=== PATIENT | female | born 1960 | race Caucasian/White ===

== ENCOUNTER 2018-05-06 05:17 | Emergency (ER) | payer OTHER, MEDICAID, SELFPAY ==
[2018-05-06 05:19] VITALS: BP 112/74; PULSE 122; RESP 22; TEMP 36.1; O2SAT 96
--- NOTE | 2018-05-06 05:32 | ED.GENADUL_ITS ---
Discharge Plan Disposition Patient Disposition: HOME Condition: Improving Discharge Details Chief Complaint: RespSymp Clinical Impression: Upper respiratory infection Primary Care Provider: Kerry Ayala ED Provider: David Ochoa Home Meds and New Rx's Prescriptions: New guaifenesin [Mucinex] 600 mg tablet extended release 12hr 600 mg PO Q12H PRNQty: 10 RF: 0 benzonatate [Tessalon Perles] 100 mg capsule 100 mg PO TID PRN (Reason: cough) Qty: 14 RF: 0 doxycycline hyclate 100 mg capsule 100 mg PO BID 10 Days Qty: 20 RF: 0 Continued acetaminophen [Acetaminophen Extra Strength] 500 mg tablet 1,000 mg PO TID PRNRF: 0 escitalopram oxalate [Lexapro] 10 mg tablet 10 mg PO HS Qty: 30 RF: 11 levothyroxine 75 mcg tablet 75 mcg PO DAILY Qty: 90 RF: 4 omeprazole 40 mg capsule,delayed release(DR/EC) 40 mg PO BID Qty: 180 RF: 4 lorazepam 1 MG tablet 1 mg PO HS PRNQty: 30 RF: 2 Excedrin Migraine 1 EACH tablet 1 ea PO PRN PRNRF: 0 Discharge Instructions Instructions: Upper Respiratory Infection (ED) Additional Instructions: Home to rest today. Small, frequent sips of fluids and/or popsicles to maintain hydration. Tylenol and/or ibuprofen as needed for aches, pains, fever. If your cough becomes more productive, you develop persistent fevers, may begin antibiotics as we discussed. Follow-up with regular doctor if not improving in 3-5 days time Stand Alone Forms: Work Release Medical Decision Making 57-year-old female presents from home with 2 days of cough and fever. She arrives with a temp of 36, normal blood pressure slightly elevated pulse. Differential diagnosis includes influenza, viral syndrome, bronchitis. She is oxygenating normally and lungs are clear. Patient given ibuprofen with some improvement of her pulse. She is taking liquids without difficulty. Influenza screening negative. Discussed with her a trial of symptomatic management and prescription in a pocket for worsening symptoms of chest congestion and production of yellow sputum. She will follow- up with regular doctor if not improving in 5 days HPI General Mode of arrival: ambulatory . Date/Time Provider Initiated Documentation: 05/06/18 05:24 . Limitations to Documentation: no limitations . Information obtained by: patient . History of Present Illness 57 year old F presents to the emergency department with the chief complaint of Cough and fever over 2 days, described as moderate, Quality is described as aching, and is localized to the chest. Patient reports no radiation. No exacerbating factors reported . Patient notes fever/chills and loss of appetite; denies nausea/vomiting. Patient did receive the following treatments prior to arrival, other (Tylenol) Related Data Home Medications Medication Instructions Recorded Confirmed Excedrin Migraine 1 ea PO PRN PRN 02/03/16 05/06/18 lorazepam 1 mg PO HS PRN #30 tab-cap 05/30/17 05/06/18 acetaminophen 500 mg tablet 1,000 mg PO TID PRN tab 01/06/18 05/06/18 escitalopram 10 mg tablet 10 mg PO HS #30 tab-cap 01/06/18 05/06/18 levothyroxine 75 mcg tablet 75 mcg PO DAILY #90 tab-cap 01/06/18 05/06/18 omeprazole 40 mg capsule,delayed 40 mg PO BID #180 cap 01/06/18 05/06/18 release benzonatate [Tessalon Perles] 100 mg PO TID PRN #14 cap 05/06/18 doxycycline hyclate 100 mg PO BID 10 Days #20 cap 05/06/18 guaifenesin [Mucinex] 600 mg PO Q12H PRN #10 tab 05/06/18 Previous Rx's Medication Instructions Recorded escitalopram 10 mg tablet 10 mg PO HS #30 tab-cap 01/06/18 levothyroxine 75 mcg tablet 75 mcg PO DAILY #90 tab-cap 01/06/18 omeprazole 40 mg capsule,delayed 40 mg PO BID #180 cap 01/06/18 release benzonatate [Tessalon Perles] 100 mg PO TID PRN #14 cap 05/06/18 doxycycline hyclate 100 mg PO BID 10 Days #20 cap 05/06/18 guaifenesin [Mucinex] 600 mg PO Q12H PRN #10 tab 05/06/18 Allergies Allergy/AdvReac Type Severity Reaction Status Date / Time ketorolac tromethamine Allergy Intermediate mouth Unverified 05/06/18 05:23 [From Toradol] becomes numb and Paranoia General Stated Complaint: RespSymp TIANNA: 3 Review of Systems Review of Systems 6 systems reviewed and otherwise - PFSH Medical History Disc disease with myelopathy, lumbar (Resolved) Ganglion (Resolved 01/24/15) Kidney stone (Resolved 02/16/14) Left foot pain (Resolved 01/24/15) Low back pain, non-specific (Resolved) Mass of left foot (Resolved) Mass of left foot (Resolved 01/31/15) Mgrn NOS w ntrc w st mgr (Resolved) Sinusitis (Resolved) Tachycardia (Resolved 02/16/14) Kidney stone Migraine Surgical History History of bilateral tubal ligation (Resolved) History of extraction of renal calculus (Resolved) History of orthopedic surgery (Resolved) Kidney Stone Extraction Ligation of fallopian tube Shoulder Surgery Family History Mother No problems noted. Father Epilepsy Grandmother Diabetes Social History Smoking/Tobacco Use Status: Former Tobacco Use Exam Narrative Exam Narrative: GEN: awake, alert, oriented 3. Pleasant, well groomed, interactive. HEAD: Normocephalic, atraumatic ENT: Mucous membranes dry, mildly erythematous tonsillar pillars, External ear exam unremarkable EYES: PERRL, EOMI NECK: Full ROM, no NATALY, no menigismus CHEST/RESP: Nontender, clear to auscultation bilateral, no wheeze/rhonchi/rales, cough noted CARDIOVASCULAR: Regular and slightly tachycardia, no murmur, rub curly. 2+ Rad pulse bilateral ABDOMEN: Soft, nontender, no mass. +Bowel sounds EXT: Full ROM, no edema, no rash Neuro: Grossly normal neurologic exam, conversant, interactive. Psych: Speech fluent, thoughts congruent, affect normal Course Vital Signs Temperature 36.1 C L 05/06/18 05:19 Pulse 122 H 05/06/18 05:19 Respiratory Rate 22 05/06/18 05:19 Blood Pressure 112/74 05/06/18 05:19 Pulse Oximetry 96 05/06/18 05:19 Temperature 36.1 C L 05/06/18 05:19 Temperature Source Skin 05/06/18 05:19 Pulse 122 H 05/06/18 05:19 Respiratory Rate 22 05/06/18 05:19 Respiratory Effort 05/06/18 05:22 Blood Pressure 112/74 05/06/18 05:19 Blood Pressure Position Sitting 05/06/18 05:19 Pulse Oximetry 96 05/06/18 05:19 Oxygen Delivery Method Room Air 05/06/18 05:19 Oxygen Flow Rate 0 05/06/18 05:19 Pain Level 7 05/06/18 05:19 Lab/Test Results Lab/Test Results: 05/06/18 05:25 Nasopharynx Influenza Types A,B Antigen - Pending
[2018-05-06] MEDS: Ibuprofen 800 MG TAB PO (05:33)
[2018-05-06 05:48] VITALS: PULSE 107; TEMP 36.6; O2SAT 95
[2018-05-06 06:00] VITALS: BP 124/77; PULSE 110; RESP 18; TEMP 36.8; O2SAT 100
== END 2018-05-06 06:00 | disposition home or self-care (01) ==
LOC: ER 06:01
PROVIDERS: Emergency Provider Emergency Medicine; PCP Family Medicine
DX: J06.9 Acute upper respiratory infection, unspecified (principal); J02.9 Acute pharyngitis, unspecified
CPT/HCPCS: 87449; 87880; 99283

== ENCOUNTER 2018-06-04 10:06 | Outpatient (CLI) | payer OTHER, SELFPAY ==
[2018-06-04 11:02] LABS: HCT 43.2 % (36.0-46.0); HGB 14.2 g/dL (12.0-15.5); Mean Corp. HGB Concentration 32.9 g/dL (32.0-36.0); Mean Corpuscular Hemoglobin 28.5 pg (27.0-33.0); Mean Corpuscular Volume 86.7 fL (80-95); Mean Platelet Volume 10.2 fL (8.0-11.0); Platelet Count 286 x1000/uL (130-400); RBC 4.98 m/cumm (4.00-5.20); RBC Distribution Width 13.1 % (11.7-14.6); White Blood Cell Count 6.41 k/cumm (4.4-10.8)
[2018-06-04 11:55] LABS: ALT 21 U/L (12-78); AST 22 U/L (15-37); Albumin 3.9 g/dL (3.4-5.0); Alkaline Phosphatase 96 U/L (46-116); Anion Gap 9.6 mmol/L (3-11); BUN 12 mg/dL (7-18); Bilirubin, Total 0.4 mg/dL (0.2-1.0); CO2 28.4 mmol/L (21.0-32.0); CREATININE 0.78 mg/dL (0.55-1.02); Calcium 9.1 mg/dL (8.5-10.1); Chloride 101 mmol/L (98-107); Cholesterol 301 mg/dL (50-200); Glucose 81 mg/dL (70-100); HDL Cholesterol 42 mg/dL (40-60); LDL CHOLESTEROL 226 mg/dL (<100); Potassium 3.9 mmol/L (3.5-5.1); Sodium 139 mmol/L (136-145); TSH (W/Ref FT4) 0.62 uIU/mL (0.358-3.74); Total Protein 7.5 g/dL (6.4-8.2); Triglyceride 168 mg/dL (30-150)
== END 2018-06-04 10:26 ==
PROVIDERS: PCP Family Medicine; Visit Provider Family Medicine
DX: E03.9 Hypothyroidism, unspecified (principal)
CPT/HCPCS: 36415; 80053; 80061; 83721; 85027; 84443

== ENCOUNTER 2018-07-28 10:02 | Emergency (ER) | payer OTHER, SELFPAY ==
[2018-07-28 10:12] VITALS: BP 132/78; PULSE 81; RESP 16; TEMP 36.6; O2SAT 97
--- NOTE | 2018-07-28 10:32 | NUR.NOTE ---
Nursing Note: Patient stated to Ann in Access just now that Dr. Ayala's office just called and they will see her right now. She left to go the that office. Fani Figueroa.
== END 2018-07-28 10:33 | disposition left before discharge ==
PROVIDERS: Emergency Provider Student in an Organized Health Care Education/Training Program; PCP Family Medicine
DX: R07.9 Chest pain, unspecified (principal); Z53.21 Procedure and treatment not carried out due to patient leaving prior to being seen by health care provider

== ENCOUNTER 2018-11-17 10:37 | Outpatient (REF) | payer MEDICAID, SELFPAY ==
--- NOTE | 2018-11-17 10:15 | PAPFT_PTH ---
PATIENT: Fay Ng LOC: [facility] U#:[id number] AGE/SX: 58/F ROOM: RE11/17/[address]: Kerry Ayala MD, DC : 1960 BED: DIS: 11/17/2018 SPEC #: [id number] RECD: 11/17/18 12:36 STATUS: SARA GÓMEZ #: [id number] LAURIE: 11/17/18 10:[address]: Kerry Ayala DEPT: [facility] Cytology RECD BY: Shelli Schmitt Tissues: 1 - CX/ENDOCX FOR PAP SMEARS Procedures: PAP THIN PREP/UVM Screening HPV DNA PROBE Comments: [id number]
== END 2018-11-17 10:57 ==
LOC: LBN 10:37
PROVIDERS: PCP Family Medicine; Visit Provider Family Medicine
DX: Z12.4 Encounter for screening for malignant neoplasm of cervix (principal); Z11.51 Encounter for screening for human papillomavirus (HPV)
CPT/HCPCS: 88142; 87624

== ENCOUNTER 2019-03-10 16:04 | Outpatient (REF) | payer MEDICAID, SELFPAY ==
--- NOTE | 2019-03-10 15:30 | SKI_PTH ---
PATIENT: Fay Ng LOC: [facility] U#:[id number] AGE/SX: 58/F ROOM: RE03/10/[address]: Kerry Ayala MD, DC : 1960 BED: DIS: 03/10/2019 SPEC #: [id number] RECD: 03/10/19 18:35 STATUS: SARA RETresa #: [id number] LAURIE: 03/10/19 15:[address]: Kerry Ayala DEPT: Surgical Specimen RECD BY: Dorene Das Tissues: 1 - SKIN BIOPSY(SHAVE/PUNCH) Procedures: SKIN LEVEL 4 Comments: [id number]
== END 2019-03-10 16:24 ==
LOC: LBN 16:04
PROVIDERS: PCP Family Medicine; Visit Provider Family Medicine
DX: L82.1 Other seborrheic keratosis (principal)
CPT/HCPCS: 88305

== ENCOUNTER 2019-09-02 18:35 | Outpatient (REF) | payer OTHER, SELFPAY ==
[2019-09-02 17:17] LABS: ALT 31 U/L (14-59); AST 24 U/L (15-37); Albumin 3.9 g/dL (3.4-5.0); Alkaline Phosphatase 75 U/L (46-116); Anion Gap 8.5 mmol/L (3-11); BUN 15 mg/dL (7-18); Bilirubin, Total 0.2 mg/dL (0.2-1.0); CO2 26.5 mmol/L (21.0-32.0); CREATININE 0.95 mg/dL (0.55-1.02); Calcium 8.7 mg/dL (8.5-10.1); Chloride 103 mmol/L (98-107); Glucose 102 mg/dL (74-106); Sodium 138 mmol/L (136-145); TSH (W/Ref FT4) 0.79 uIU/mL (0.36-3.74); Total Protein 7.1 g/dL (6.4-8.2)
== END 2019-09-02 18:55 ==
LOC: LBN 18:35
PROVIDERS: PCP Family Medicine; Visit Provider Family Medicine
DX: Z00.00 Encounter for general adult medical examination without abnormal findings (principal); Z13.228 Encounter for screening for other metabolic disorders; Z13.29 Encounter for screening for other suspected endocrine disorder
CPT/HCPCS: 80053; 84443

== ENCOUNTER 2019-09-08 13:30 | Emergency (ER) | payer OTHER, SELFPAY ==
[2019-09-08 13:37] VITALS: BP 115/89; PULSE 77; RESP 18; TEMP 36.6; O2SAT 96
--- NOTE | 2019-09-08 13:45 | DI.RAD_ITS ---
EXAM: XR WRIST RT COMPLETE and XR forearm RT CLINICAL HISTORY: Fall, deformity. TECHNIQUE: 2D digital imaging was performed. COMPARISON: CR XR FOREARM RT from 09/08/2019 FINDINGS: BONES: Nondisplaced fracture at the base of the ulnar styloid process. Comminuted fracture involving the distal metaphysis of the right radius. There does appear to be extension into the articular michael face medially. The fracture is mildly impacted. No other fracture is identified. There are tiny we ll corticated osseous densities adjacent to the olecranon which appear old. No bony destructive lesi on is seen. JOINTS: The carpal bones are normally aligned. SOFT TISSUE: Normal. IMPRESSION: Distal right radial and ulnar fractures as described. DATA REPOSITORY: RADIATION DOSE DELIVERED:
--- NOTE | 2019-09-08 13:49 | ED.GENADUL_ITS ---
Discharge Plan Disposition Patient Disposition: HOME Condition: Stable Discharge Details Chief Complaint: Orthopedic Clinical Impression: Closed fracture of distal end of right radius with ulna Primary Care Provider: Kerry Ayala ED Provider: Caitlin Dong Home Meds and New Rx's Prescriptions: No Action diphenhydramine-acetaminophen [Tylenol PM Extra Strength] 25-500 mg tablet 1 tab PO QHS PRNRF: 0 sumatriptan succinate 100 mg tablet 100 mg PO ONCE Qty: 8 RF: 12 acetaminophen [Acetaminophen Extra Strength] 500 mg tablet 1,000 mg PO TID PRNRF: 0 escitalopram oxalate [Lexapro] 10 mg tablet 10 mg PO HS Qty: 90 RF: 11 levothyroxine 75 mcg tablet 75 mcg PO DAILY Qty: 90 RF: 4 famotidine 20 mg tablet 40 mg PO QHS Qty: 180 RF: 4 omeprazole 40 mg capsule,delayed release(DR/EC) 40 mg PO BID Qty: 180 RF: 4 Excedrin Migraine 1 EACH tablet 1 ea PO PRN PRNRF: 0 Discharge Instructions Instructions: Wrist Fracture in Adults (ED) Additional Instructions: Please follow-up with orthopedic clinic in 1 week. Return to the ED with for any concerns, worsening pain, problems with circulation. Take ibuprofen every 4-6 hours as needed for pain. Do not take any other Tylenol with Percocet. Take Percocets with food. Do not operate heavy machinery or drive while taking medication. Stand Alone Forms: Work Release Referrals: Kerry Ayala MD, [place] [Primary Care Provider] - Luciano Navarrete MD [ [facility] STAFF PHYSICIAN] - Discharge Data Discharge Date/Time-TO BE ENTERED AT DEPARTURE: 09/08/19 15:33 Medical Decision Making 59-year-old female presents with right forearm and wrist pain and deformity after a slip and fall while getting out of the shower. Patient denies hitting head, no loss of consciousness denies any neck or back pain. Radial pulses are 2+, cap refill less than 2 seconds, elbow is intact with full range of motion no crepitus, step-off or deformity noted to the elbow. Patient denies any other symptoms. 1354: Zofran 4 mg ODT, Percocet 1 tablet p.o. and imaging ordered at this time rule out fracture which is highly suspected. CLINICAL HISTORY: Fall, deformity. FINDINGS: BONES: Nondisplaced fracture at the base of the ulnar styloid process. Comminuted fracture involving the distal metaphysis of the right radius. There does appear to be extension into the articular surface medially. The fracture is mildly impacted. No other fracture is identified. There are tiny well corticated osseous densities adjacent to the olecranon which appear old. No bony destructive lesion is seen. JOINTS: The carpal bones are normally aligned. SOFT TISSUE: Normal. IMPRESSION: Distal right radial and ulnar fractures as described. 1523: Splint applied reverse sugar tong, patient tolerated with difficulty complaining of pain. We will give 1 more Percocet here in department and sent home with a bottle of oxycodone 5 mg with 4 tabs. Plan is to have patient follow-up with orthopedics in 1 week. Distal circulation sensation movement intact post splint placement. Discussed home care, and splint care, instructed to keep elevated, ice, instructed to loosen Hernán wrap if any problems with circulation or pain. Verbalized understanding. HPI General Mode of arrival: ambulatory . Date/Time Provider Initiated Documentation: 09/08/19 13:42 . Limitations to Documentation: no limitations . Information obtained by: patient . HPI Narrative: 59-year-old female presents with right forearm and wrist pain and deformity after a slip and fall while getting out of the shower. Patient denies hitting head, no loss of consciousness denies any neck or back pain. Radial pulses are 2+, cap refill less than 2 seconds, elbow is intact with full range of motion no crepitus, step-off or deformity noted to the elbow. Patient denies any other symptoms. Related Data Home Medications Medication Instructions Recorded Confirmed Excedrin Migraine 1 ea PO PRN PRN 02/03/16 09/08/19 acetaminophen 500 mg tablet 1,000 mg PO TID PRN tab 01/06/18 09/08/19 escitalopram oxalate 10 mg tablet 10 mg PO HS #90 tab-cap 08/20/18 09/08/19 diphenhydramine 25 1 tab PO QHS PRN 11/17/18 09/08/19 mg-acetaminophen 500 mg tablet levothyroxine 75 mcg tablet 75 mcg PO DAILY #90 tab-cap 01/14/19 09/08/19 famotidine 20 mg tablet 40 mg PO QHS #180 tab 03/17/19 09/08/19 omeprazole 40 mg capsule,delayed 40 mg PO BID #180 cap 06/22/19 09/08/19 release sumatriptan succinate 100 mg tablet 100 mg PO ONCE #8 tab 07/16/19 09/08/19 Previous Rx's Medication Instructions Recorded escitalopram oxalate 10 mg tablet 10 mg PO HS #90 tab-cap 08/20/18 levothyroxine 75 mcg tablet 75 mcg PO DAILY #90 tab-cap 01/14/19 famotidine 20 mg tablet 40 mg PO QHS #180 tab 03/17/19 omeprazole 40 mg capsule,delayed 40 mg PO BID #180 cap 06/22/19 release sumatriptan succinate 100 mg tablet 100 mg PO ONCE #8 tab 07/16/19 Allergies Allergy/AdvReac Type Severity Reaction Status Date / Time ketorolac tromethamine Allergy Intermediate mouth Unverified 09/08/19 13:41 [From Toradol] becomes numb and Paranoia General Stated Complaint: Orthopedic TIANNA: 3 Review of Systems Narrative: Constitutional: Negative for weight loss, alert and oriented, well groomed, normal body habitus, appears uncomfortable. HEENT: Denies headaches, blurry vision, nasal discharge, sore throat, trouble swallowing. Chest: Denies chest pain, palpitations, irregular rhythm, hypertension. Respiratory: Denies Shortness of breath, cough, hemoptysis. Extremities: Right upper extremity tenderness and pain after fall Neuro: Denies dizziness, blurry vision, weakness, syncope, headache or facial numbness. Hematologic: Denies easy bruising, intolerance to heat or cold, hair loss. All systems reviewed & are unremarkable except as noted in HPI and below PFSH Medical History Arthritis of right acromioclavicular joint (Chronic 01/05/16) Bicipital tendinitis, right shoulder (Chronic 02/08/16) Depression (Chronic 07/26/14) Disc disease with myelopathy, lumbar (Resolved) Ganglion (Resolved 01/24/15) Gastroesophageal reflux disease with esophagitis (Chronic 10/01/17) Hypothyroidism (Chronic 11/26/16) Incomplete rupture of right rotator cuff (Chronic 01/05/16) Insomnia (Chronic 07/26/14) Kidney stone Kidney stone (Resolved 02/16/14) Left foot pain (Resolved 01/24/15) Low back pain, non-specific (Resolved) 06/23/12 unspecified laterality with sciatica presence unspecified Mass of left foot (Resolved) Mass of left foot (Resolved 01/31/15) Mgrn NOS w ntrc w st mgr (Resolved) 06/23/12 Migraine 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) Right thyroid nodule (Chronic 04/24/16) vascular by US hyperfunction by scan S/P Surgery Sinusitis (Resolved) 07/26/14 SLAP (superior labrum from anterior to posterior) tear (Chronic 03/02/16) 02/08/16 right shoulder Subacromial bursitis (Chronic 02/08/16) 02/07/19-with large anterolateral spur Tachycardia (Resolved 02/16/14) Surgical History History of bilateral tubal ligation (Resolved) History of extraction of renal calculus (Resolved) History of orthopedic surgery (Resolved) 02/01/09 removal of mass-left foot (suspected ganglion cyst) Kidney Stone Extraction Ligation of fallopian tube Shoulder Surgery 02/08/16-right shoulder; Dr. Navarrete Family History Mother , 89 Heart disease Father , 85 Epilepsy Brain cancer Heart disease Grandmother Diabetes Brother , 20 No problems noted. Brother , 66 Kidney cancer, primary, with metastasis from kidney to other site Social History Smoking/Tobacco Use Status: Former Tobacco Use Quit Date: 04/01/16 Alcohol Intake: never Drug use: Never Substance use type: does not use Caregiver/Support person: No Household members: spouse Housing: house Communication Needs: None Do you need help understanding health information?: Never Pets and animals: No Sexually active: Yes Do you think of yourself as: straight/heterosexual Current gender identity: female What is your relationship status?: How often do you talk on the phone with friends or family?: three or more times per week How often do you get together with friends or relatives?: three or more times per week How often do you attend druze or latter-day services?: decline to answer Do you belong to any clubs or organized social groups?: no Panel score (0-1 are the most socially isolated patients): 2 What type of physical activity do you participate in: decline to answer Duration: decline to answer Frequency: decline to answer Davida/Congregation: Religion Special davida needs: No Seatbelt use: always Drive intox or ride w/intox commercial trailer truck driver: No Do you feel safe at home: Yes Do you feel safe in your relationship?: Yes Exam Narrative Exam Narrative: Constitutional: Alert and oriented x3. Appears stated age. Normal body habitus. Head: Normocephalic, no trauma. Eyes: Pupils PERRLA, Red reflex noted, EOM's intact. Eyelids symmetrical without lesions, discharge, or swelling. ENT: Bilateral TM's WNL, External ear normal to inspection, no mastoid TTP, swelling, or erythema, Nasal turbinates WNL, no nasal discharge. Normal dentition, Posterior pharynx WNL, no exudate. Chest: RRR, Normal S1, S2, distal pulses intact. Resp: Lungs clear to auscultation bilaterally, no wheezes, rales, or rhonchi. Musculoskeletal: Normal gait, right upper extremity tenderness to palpation mid forearm, has a swelling and deformity noted to the medial aspect the dorsal wrist. Positive snuffbox tenderness, cap refill less than 2 seconds, radial pulses intact 2+. No obvious deformity, tenderness to palpation to elbow. No midline C, T, L-spine tenderness with palpation. Skin: No suspicious rashes or lesions. Capillary refill less than 2 sec. Neurologic: Cranial nerves II-XII intact. Alert and oriented x 3. DTR's intact. Hematologic/Lymphatic: No ecchymosis, no lymphadenopathy. Course Vital Signs Vital signs: Vital Signs Temperature 36.6 C 09/08/19 13:37 Pulse 77 09/08/19 13:37 Respiratory Rate 18 09/08/19 13:37 Blood Pressure 115/89 09/08/19 13:37 Pulse Oximetry 96 09/08/19 13:37 Temperature 36.6 C 09/08/19 13:37 Temperature Source Temporal Artery Scan 09/08/19 13:37 Pulse 77 09/08/19 13:37 Respiratory Rate 18 09/08/19 13:37 Respiratory Effort Non-Labored 09/08/19 13:40 Blood Pressure 115/89 09/08/19 13:37 Blood Pressure Position Sitting 09/08/19 13:37 Pulse Oximetry 96 09/08/19 13:37 Oxygen Delivery Method Room Air 09/08/19 13:37 Oxygen Flow Rate 0 09/08/19 13:37 Pain Level 9 09/08/19 13:41
[2019-09-08] MEDS: Ondansetron O.D.T. 4 MG TABEF PO (13:51)
[2019-09-08] MEDS: oxyCODONE 5 mg/Acetaminophen 325 mg TAB 1 TAB PO ×2 (13:51→15:25)
[2019-09-08 15:30] VITALS: BP 120/82; PULSE 72; RESP 18; O2SAT 88
== END 2019-09-08 15:33 | disposition home or self-care (01) ==
PROVIDERS: Emergency Provider Registered Nurse Emergency; PCP Family Medicine
DX: S52.614A Nondisplaced fracture of right ulna styloid process, initial encounter for closed fracture (principal); S52.571A Other intraarticular fracture of lower end of right radius, initial encounter for closed fracture; W18.2XXA Fall in (into) shower or empty bathtub, initial encounter
CPT/HCPCS: 29125; 99284; 73090; 73110; L3650

== ENCOUNTER 2019-09-18 11:56 | Outpatient (CLI) | payer OTHER, SELFPAY ==
--- NOTE | 2019-09-18 11:45 | DI.RAD_ITS ---
EXAM: XR WRIST RT LIMITED CLINICAL HISTORY: F/U FRACTURE. TECHNIQUE: 2D digital imaging was performed. COMPARISON: CR XR WRIST RT COMPLETE from 09/08/2019 FINDINGS: Two views were performed with the wrist in a splint. There is there are again noted to be distal rad ial and ulnar styloid the fractures, unchanged in position. DATA REPOSITORY: RADIATION DOSE DELIVERED:
== END 2019-09-18 12:16 ==
PROVIDERS: PCP Family Medicine; Referring Provider Family Medicine; Visit Provider Student in an Organized Health Care Education/Training Program
DX: S52.571D Other intraarticular fracture of lower end of right radius, subsequent encounter for closed fracture with routine healing (principal); S52.614D Nondisplaced fracture of right ulna styloid process, subsequent encounter for closed fracture with routine healing
CPT/HCPCS: 73100

== ENCOUNTER 2019-09-25 10:06 | Outpatient (CLI) | payer OTHER, SELFPAY ==
--- NOTE | 2019-09-25 10:00 | DI.RAD_ITS ---
EXAM: XR WRIST RT LIMITED CLINICAL HISTORY: right distal radius fracture TECHNIQUE: COMPARISON: CR XR WRIST RT COMPLETE from 09/08/2019 CR XR FOREARM RT from 09/08/2019 CR XR WRIST RT LIMITED from 09/18/2019 CR XR WRIST RT LIMITED from 09/18/2019 FINDINGS: Two views were obtained. Previously described fracture of the distal radius is again noted, there ap pears to be mildly increased dorsal angulation of the distal fracture fragments in comparison prior s dy of September 07 and September 17. Additionally there may be mildly increased loss of length of the dis addi radius. IMPRESSION:
== END 2019-09-25 10:26 ==
PROVIDERS: PCP Family Medicine; Referring Provider Family Medicine; Visit Provider Physician Assistant
DX: S52.571D Other intraarticular fracture of lower end of right radius, subsequent encounter for closed fracture with routine healing (principal)
CPT/HCPCS: 73100

== ENCOUNTER 2019-09-28 07:58 | Outpatient (CLI) | payer OTHER, SELFPAY ==
[2019-09-28 20:43] LABS: COVID-19 RT-PCR UVMMC Result Negative (Negative)
== END 2019-09-28 08:18 ==
PROVIDERS: PCP Family Medicine; Visit Provider Student in an Organized Health Care Education/Training Program
DX: Z01.818 Encounter for other preprocedural examination (principal); Z11.59 Encounter for screening for other viral diseases
CPT/HCPCS: U0003

== ENCOUNTER 2019-09-30 11:15 | Day surgery (SDC) | payer OTHER, SELFPAY ==
[2019-09-30] VITALS (8 sets, daily range): BP systolic 89–129; BP diastolic 61–88; PULSE 66–77; RESP 12–18; TEMP 36.4–36.9; O2SAT 95–98
--- NOTE | 2019-09-30 10:14 | PDOC.DSDIS_ITS ---
Discharge Plan Disposition Patient Disposition: HOME Condition: Good Discharge Details Reason For Visit: R WRIST FX Attending Provider: Luciano Navarrete Primary Care Provider: Kerry Ayala Home Meds and New Rx's Prescriptions: New acetaminophen 500 mg tablet 500 mg PO Q6H PRN (Reason: pain) Qty: 60 RF: 2 ibuprofen 600 mg tablet 600 mg PO TID PRN (Reason: pain) Qty: 60 RF: 2 oxycodone 5 mg tablet 5 mg PO Q6H PRN (Reason: severe post-operative pain) Qty: 12 RF: 0 Continued diphenhydramine-acetaminophen [Tylenol PM Extra Strength] 25-500 mg tablet 1 tab PO QHS PRNRF: 0 sumatriptan succinate 100 mg tablet 100 mg PO ONCE Qty: 8 RF: 12 escitalopram oxalate [Lexapro] 10 mg tablet 10 mg PO HS Qty: 90 RF: 11 levothyroxine 75 mcg tablet 75 mcg PO DAILY Qty: 90 RF: 4 omeprazole 40 mg capsule,delayed release(DR/EC) 40 mg PO BID Qty: 180 RF: 4 Excedrin Migraine 1 EACH tablet 1 ea PO PRN PRNRF: 0 Discontinued acetaminophen [Acetaminophen Extra Strength] 500 mg tablet 1,000 mg PO TID PRNRF: 0 Discharge Instructions Additional Instructions: Wrist Fracture Fixation Discharge Instructions Activity: You should keep the hand/wrist elevated as much as possible for the first few days. You may use the other fingers as tolerated but avoid trying to do too much too soon. You may perform light activities with the splint in place. Dressing/Cast: Your splint should stay in place at all times. Do NOT get it wet. You may loosen the KEL wrap if you feel it is too tight and then re-wrap more loosely. Medications: - You should take Tylenol and Ibuprofen for baseline pain control. - You have been prescribed a stronger pain medication, Oxycodone, for breakthrough pain. - You may apply ice over the wrist, just double bag so it doesn't get wet. Follow-up: 10-14 days Referrals: Luciano Navarrete MD [ [facility] STAFF PHYSICIAN] - Equipment/Supplies: Splint Activity:: Elevate Remove Dressings/Wound Care:: Do Not Remove Shower/Bathe:: Cover Diet:: As Tolerated Discharge Orders Discharge Orders: Discharge Order (Routine); Ordered 09/30/19 Ordered By: Portia Pérez DS: Diagnosis Discharge Diagnosis (1) Distal radius fracture: Status: Acute
[2019-09-30] MEDS: Lactated Ringers 1,000 ML 80 ML IV (11:54)
--- NOTE | 2019-09-30 12:30 | DI.RAD_ITS ---
EXAM: XR WRIST RT LIMITED CLINICAL HISTORY: FRACTURE DISTAL RADIUS TECHNIQUE: 2D and realtime digital imaging was performed. CONTRAST MATERIAL: Refer to procedure report. COMPARISON: CR XR WRIST RT LIMITED from 09/25/2019 FINDINGS: Fluoroscopy was provided for Dr. Navarrete during the performance of a open reduction and internal fi xation of the distal right radial fracture.. Please refer to the procedure report for complete detai ls. Fluoro time: 44 seconds IMPRESSION: RADIATION DOSE DELIVERED:
[2019-09-30] MEDS: ceFAZolin 2 GM/50 ML BAG IVPB (13:04)
[2019-09-30] MEDS: oxyCODONE 5 MG TAB PO (15:07)
[2019-09-30] MEDS: fentaNYL 100 MCG/2 ML VIAL IVP (15:30)
--- NOTE | 2019-10-01 07:22 | ROE_ITS ---
Date of service: 09/30/19 Time of Service: 15:23 Operative Note Operative Note DATE OF PROCEDURE: 10/16/18 PRE-OP DIAGNOSIS: Right Distal Radius Fracture POST-OP DIAGNOSIS: same PROCEDURE: Open Reduction and Internal Fixation of Right Distal Radius SURGEON: Luciano Navarrete GM/SVP [employer] PUBLISHER BUSINESS: Portia Pérez ANESTHESIA: GETA and regional ESTIMATED BLOOD LOSS: 0 PATHOLOGY: none sent TOURNIQUET TIME: 44 COMPLICATIONS: None Patient was transported to: PACU Patient's condition: stable Indications: Fay is a 59-year-old [id number] female who I have seen for a distal radius fracture. Initial treatment with splinting was performed. However, the fracture worsened within the splint. Given the deformity, displacement, fracture pattern, and effect on daily function, I recommended surgical fixation. I reviewed the risk of the procedure to include bleeding, infection co-pay, stiffness, damage to nerves and vessels, damage to muscles and tendons, malunion, nonunion, hardware prominence, tendon rupture, need for repeat procedures. Despite these risks, the patient elected to proceed. Findings: There is a distal radius fracture which had 3 parts. There is a primary distal articular block, the proximal fragment, and significant comminuted pieces over the dorsum. It was reduced and fixed with a Synthes volar locking plate. Areas of bone void were filled with Norian calcium phosphate cement. Procedure Description: Name was greeted in the preoperative holding area. The correct patient and site was confirmed and marked. The history and physical was updated. The consent was reviewed the patient and signed. The patient was taken to the PACU for administration of regional anesthetic, supraclavicular block. The patient was taken to the operating room and placed in the supine position. All bony problems were well-padded. The right arm was placed onto a radiolucent hand table. A nonsterile tourniquet was placed high up on the arm. Prophylactic antibiotics in the form of cefazolin were administered. The left arm was prepped with ChloraPrep and draped in a standard fashion. A timeout was performed for safe surgery. A standard longitudinal incision was made overlying the flexor carpi radialis tendon starting at the distal wrist crease and moving proximally. The skin was incised sharply. The flexor carpi radialis tendon and its sheath is identified. The sheath was opened. The tendon was moved ulnarly in the floor of the sheath was incised. Blunt dissection the flexor pollicis longus muscle belly and tendon were also made radially exposing the pronator quadratus and the distal radius. The printer quadratus was elevated with an ulnar-based flap. This exposed the volar distal radius and the fracture. A kirby elevator was used for full exposure of the volar surface of the distal radius. The primary fracture line was exposed. Using a series of elevators, curettes, and knife, the fracture was fully debrided of any fibrous tissue and callus formation. I used a freer elevator to help mobilize the fragments. There were 2 primary components, one mini articular block on being the shaft. The third part was the comminuted dorsal pieces. I then performed a closed reduction. Using gentle traction and fracture manipulation, this reduction was held. Fluoroscopic images were used to confirm adequate reduction. An appropriately sized Synthes volar locking plate was then placed onto the bony surface of the distal radius. Was then held there with a distal radius clamp sandwiching the plate to the distal segment. A single K wire was placed through the distal end. Fluoroscopy was once again used to confirm appropriate positioning of the plate on the distal radius. A reduction K wire was placed into the slotted hole on the shaft but not tightened all the way to allow for manipulation of the distal segment onto the proximal shaft. A single nonlocking screw was placed to the distal portion of the plate securing the plate against the bone of the distal radial metaphysis. Once again, the plate was evaluated to make sure it was aligned appropriately. The single screw was also checked to make sure it was in appropriate positioning for trajectory of future screws. The remainder of the screws within the volar locking plate were filled with locking screws. These were made sure not to penetrate the dorsal cortex. Once these were applied the proximal portion of the plate was further reduced down onto the shaft, which further reduce the distal segment. This was held in position with a tightened reduction K wire. Fluoroscopy was then used against confirm appropriate reduction. Nonlocking screws were placed within the 3 shaft screw holes. The single nonlocking screw placed distally was treated for a locking screw slightly shorter to prevent penetration dorsally. Final x-rays were obtained which demonstrated adequate reduction and positioning of hardware. The dorsal sunrise view was also obtained to ensure correct sizing of screws. The wound was then thoroughly irrigated. The pronator quadratus was reapproximated with a 0 Vicryl. The tourniquet was released and there was no notable vascular injury. The fingers were warm and well-perfused. The deep dermal layer was closed with a 2-0 Vicryl. The skin was closed with 4-0 nylon. The wound was dressed with Xeroform, 4 x 4's, web roll. A short arm splint was applied. At the end the case all counts are correct. Patient was transferred back to the PACU in stable condition.
== END 2019-09-30 16:49 | disposition home or self-care (01) ==
LOC: SUR 11:15
PROVIDERS: PCP Family Medicine; Visit Provider Student in an Organized Health Care Education/Training Program
PROC: (CPT 25609; principal; 2019-09-30 13:30)
DX: S52.571A Other intraarticular fracture of lower end of right radius, initial encounter for closed fracture (principal); W19.XXXA Unspecified fall, initial encounter; Y92.009 Unspecified place in unspecified non-institutional (private) residence as the place of occurrence of the external cause
CPT/HCPCS: 25609; C1713; 73100; J0131; J0690; J1100; J2001; J2250; J2405; J3010; L3650

== ENCOUNTER 2019-10-12 13:53 | Outpatient (CLI) | payer OTHER, SELFPAY ==
--- NOTE | 2019-10-12 12:45 | DI.RAD_ITS ---
EXAM: XR WRIST RT LIMITED CLINICAL HISTORY: f/u surgery. TECHNIQUE: 2D digital imaging was performed. COMPARISON: CR XR WRIST RT LIMITED from 09/30/2019 FINDINGS: BONES: There is again seen a sideplate and screws transfixing the distal right radial fracture. No c hange in alignment of the orthopedic hardware or fracture components is noted. There is a stable non displaced ulnar styloid process fracture. No bony destructive lesion is seen. JOINTS: The carpal bones are normally aligned. SOFT TISSUE: Soft tissue swelling. IMPRESSION: Stable right radial and ulnar fractures. DATA REPOSITORY: RADIATION DOSE DELIVERED:
== END 2019-10-12 14:13 ==
PROVIDERS: PCP Family Medicine; Referring Provider Family Medicine; Visit Provider Student in an Organized Health Care Education/Training Program
DX: S52.614D Nondisplaced fracture of right ulna styloid process, subsequent encounter for closed fracture with routine healing (principal); S52.571D Other intraarticular fracture of lower end of right radius, subsequent encounter for closed fracture with routine healing
CPT/HCPCS: 73100

== ENCOUNTER 2019-11-09 09:38 | Outpatient (CLI) | payer OTHER, SELFPAY ==
--- NOTE | 2019-11-09 09:15 | DI.RAD_ITS ---
EXAM: XR WRIST RT LIMITED CLINICAL HISTORY: f/u R wrist ORIF. TECHNIQUE: 2D digital imaging was performed. COMPARISON: CR XR WRIST RT LIMITED from 10/12/2019 FINDINGS: BONES: There are stable post operative changes present. There is a stable ulnar styloid process frac ture. No new fracture or dislocation is present. JOINTS: The joint spaces are well maintained. No joint effusion is present. SOFT TISSUE: Normal. IMPRESSION: Stable postoperative changes. DATA REPOSITORY: RADIATION DOSE DELIVERED:
== END 2019-11-09 09:58 ==
PROVIDERS: PCP Family Medicine; Referring Provider Family Medicine; Visit Provider Student in an Organized Health Care Education/Training Program
DX: S52.611D Displaced fracture of right ulna styloid process, subsequent encounter for closed fracture with routine healing (principal)
CPT/HCPCS: 73100

== ENCOUNTER 2019-12-02 04:39 | Outpatient (CLI) | payer OTHER, SELFPAY ==
--- NOTE | 2019-12-02 08:30 | DI.DEXA_ITS ---
EXAM: XR DEXA BONE DENSITY W/WO ARBEN CLINICAL HISTORY: osteoporosis, M81.0 TECHNIQUE: COMPARISON: No exams were available for comparison FINDINGS: Lateral Spine Image: Unremarkable. No compression deformities identified. Left hip: Total T-Score: -2.1 Total Z-Score: -1.1 T- and Z-scores: Osteopenia and increased fracture risk Lumbar Spine: Total T-Score: -2.3 Total Z-Score: -0.8 T- and Z-scores: Osteopenia and increased fracture risk IMPRESSION: Osteopenia in the left hip and lumbar spine.
== END 2019-12-02 04:59 ==
PROVIDERS: PCP Family Medicine; Visit Provider Family Medicine
DX: M85.89 Other specified disorders of bone density and structure, multiple sites (principal)
CPT/HCPCS: 77080

== ENCOUNTER 2019-12-21 09:15 | Outpatient (CLI) | payer OTHER, SELFPAY ==
--- NOTE | 2019-12-21 08:15 | DI.RAD_ITS ---
EXAM: XR WRIST RT LIMITED CLINICAL HISTORY: F/U ORIF WRIST. TECHNIQUE: 2D digital imaging was performed. COMPARISON: CR XR WRIST RT LIMITED from 11/09/2019 FINDINGS: There is again seen a sideplate and screws transfixing the distal right radial fracture. No change i n alignment of the orthopedic hardware or fracture components is noted. The distal radial fracture a ppears to be healing. There is no change in the nondisplaced ulnar styloid process fracture. No new fracture or dislocation is seen. The soft tissues are unremarkable. IMPRESSION: Stable distal right radial and ulnar fractures. DATA REPOSITORY: RADIATION DOSE DELIVERED:
== END 2019-12-21 09:35 ==
PROVIDERS: PCP Family Medicine; Referring Provider Family Medicine; Visit Provider Student in an Organized Health Care Education/Training Program
DX: S52.591A Other fractures of lower end of right radius, initial encounter for closed fracture (principal); S52.614A Nondisplaced fracture of right ulna styloid process, initial encounter for closed fracture
CPT/HCPCS: 73100

== ENCOUNTER 2020-06-08 03:53 | Outpatient (CLI) | payer OTHER, SELFPAY ==
[2020-06-08 10:47] LABS: ALT 36 U/L (14-59); AST 23 U/L (15-37); Alkaline Phosphatase 74 U/L (46-116); Anion Gap 11.8 mmol/L (3-11); BUN 14 mg/dL (7-18); Bilirubin, Total 0.4 mg/dL (0.2-1.0); CO2 25.2 mmol/L (21.0-32.0); CREATININE 0.8 mg/dL (0.55-1.02); Calcium 8.7 mg/dL (8.5-10.1); Chloride 101 mmol/L (98-107); Glucose 102 mg/dL (74-106); Potassium 4.1 mmol/L (3.5-5.1); Sodium 138 mmol/L (136-145); TSH (W/Ref FT4) 1.18 uIU/mL (0.36-3.74); Total Protein 7.2 g/dL (6.4-8.2); Vitamin B12 397 pg/mL (193-986)
== END 2020-06-08 03:54 | disposition home or self-care (01) ==
LOC: LBO 03:53
PROVIDERS: PCP Family Medicine; Visit Provider Family Medicine
DX: Z00.00 Encounter for general adult medical examination without abnormal findings (principal); E03.9 Hypothyroidism, unspecified; R53.83 Other fatigue; R71.8 Other abnormality of red blood cells; D64.9 Anemia, unspecified; K21.9 Gastro-esophageal reflux disease without esophagitis
CPT/HCPCS: 36415; 80053; 82607; 84443

== ENCOUNTER 2021-11-28 15:07 | Outpatient (REF) | payer OTHER, SELFPAY ==
[2021-11-28 20:33] LABS: HCT 42.1 % (36.0-46.0); HGB 13.7 g/dL (11.2-15.7); MCH 28.8 pg (27.0-33.0); MCHC 32.5 % (32.0-36.0); MCV 88 fL (80-95); MPV 10.8 fL (8.0-11.0); Platelet Count 279 10^3/uL (130-400); RBC 4.76 10^6/uL (3.93-5.22); RDW 12.4 % (11.7-14.6); RDW-SD 40.2 fL
[2021-11-28 21:23] LABS: AST 27 U/L (15-37); Albumin 4.3 g/dL (3.4-5.0); Alkaline Phosphatase 57 U/L (46-116); Anion Gap 13.5 mmol/L (3-11); BUN 16 mg/dL (7-18); Bilirubin, Total 0.4 mg/dL (0.2-1.0); CO2 25.5 mmol/L (21.0-32.0); CREATININE 0.9 mg/dL (0.55-1.02); Chloride 102 mmol/L (98-107); Estimated GFR 71.83 (mL/min/1.73m2); Glucose 102 mg/dL (74-106); Potassium 3.9 mmol/L (3.5-5.1); Sodium 141 mmol/L (136-145); TSH (W/Ref FT4) 0.88 uIU/mL (0.36-3.74); Total Protein 7.6 g/dL (6.4-8.2); Vitamin B12 389 pg/mL (193-986)
[2021-11-28 21:39] LABS: ALT 37 U/L (14-59)
== END 2021-11-28 15:08 | disposition home or self-care (01) ==
LOC: LBN 15:07
PROVIDERS: PCP Family Medicine; Visit Provider Family Medicine
DX: E03.9 Hypothyroidism, unspecified (principal); F32.9 Major depressive disorder, single episode, unspecified; K21.00 Gastro-esophageal reflux disease with esophagitis, without bleeding; Z00.00 Encounter for general adult medical examination without abnormal findings
CPT/HCPCS: 80053; 85027; 82607; 84443

== ENCOUNTER 2022-05-17 07:53 | Emergency (ER) | payer OTHER, SELFPAY ==
[2022-05-17 07:56] VITALS: BP 134/83; PULSE 89; RESP 16; TEMP 36.3; O2SAT 98
--- NOTE | 2022-05-17 08:00 | DI.RAD_ITS ---
Exam(s) XR RIBS RT W PA LAT CHEST EXAM: XR RIBS RT W PA LAT CHEST CLINICAL HISTORY: Fall with right lateral rib pain TECHNIQUE: 2D digital imaging was performed. COMPARISON: CR CHEST 2 VIEWS PA,LAT from 05/30/2017 FINDINGS: RIBS 3 VIEWS-right There are no obvious acute rib fractures evident. No lytic rib lesions identified. Incidentally not ed is a widened ipsilateral right AC joint although this is probably postsurgical. CXR- 2 VIEWS: There is no abnormal infiltrate in the right upper lobe which was not evident in 2018. This may be a significant incidental finding. No other pulmonary findings and no pneumothorax nor pleural effusio n. Heart size is normal and there is no significant mediastinal widening. IMPRESSION: 1. No obvious rib fractures evident. Also no significant rib lesions. 2. Right upper lobe infiltrate-possible concerning pathology. This was not present in 2018. Conside r CT scan. DATA REPOSITORY: RADIATION DOSE DELIVERED:
--- NOTE | 2022-05-17 08:00 | DI.RAD_ITS ---
Exam(s) XR FOOT RT COMPLETE EXAM: XR FOOT RT COMPLETE CLINICAL HISTORY: fall lateral pain. TECHNIQUE: 2D digital imaging was performed. COMPARISON: No exams were available for comparison FINDINGS: 3 views Mild soft tissue swelling. No evidence of acute fracture or diastasis of the Lisfranc joint. Bone d ensity normal. No osseous lesions. No radiopaque foreign body. IMPRESSION: No acute osseous findings DATA REPOSITORY: RADIATION DOSE DELIVERED:
--- NOTE | 2022-05-17 08:00 | DI.RAD_ITS ---
Exam(s) XR TIB/FIB RT EXAM: XR TIB/FIB RT CLINICAL HISTORY: fall lower tib pain. TECHNIQUE: 2D digital imaging was performed. COMPARISON: No exams were available for comparison FINDINGS: Two views: No evidence of fracture nor radiopaque foreign body. No osseous lesions. Bone density normal. IMPRESSION: No significant osseous findings. DATA REPOSITORY: RADIATION DOSE DELIVERED:
--- NOTE | 2022-05-17 08:00 | DI.RAD_ITS ---
Exam(s) XR STERNUM EXAM: XR STERNUM CLINICAL HISTORY: fall lower half pain. TECHNIQUE: 2D digital imaging was performed. COMPARISON: CR XR RIBS RT W PA LAT CHEST from 05/17/2022 FINDINGS: 3 views No sternal fracture identified IMPRESSION: No sternal fracture evident. DATA REPOSITORY: RADIATION DOSE DELIVERED:
--- NOTE | 2022-05-17 08:16 | W.ED.GENAD ---
Discharge Plan Disposition Patient Disposition: Home Condition: Stable Discharge Details Clinical Impression: Contusion of multiple sites, Right foot sprain Primary Care Provider: Kerry Ayala ED Provider: Minor Christine Home Meds and New Rx's Prescriptions: Continued diphenhydramine-acetaminophen [Tylenol PM Extra Strength] 25-500 mg tablet 1 tab PO QHS PRN ibuprofen 600 mg tablet 600 mg PO TID PRN (Reason: pain) Qty: 60 2RF molnupiravir 200 mg capsule 800 mg PO Q12H 5 Days Qty: 40 0RF escitalopram oxalate 20 mg tablet 20 mg PO HS Qty: 90 11RF levothyroxine 75 mcg tablet 75 mcg PO DAILY Qty: 90 1RF omeprazole 40 mg capsule,delayed release(DR/EC) 40 mg PO DAILY Qty: 90 4RF Excedrin Migraine 1 EACH tablet 1 ea PO PRN PRN acetaminophen 500 mg tablet 500 mg PO Q6H PRN (Reason: pain) Qty: 60 2RF Discharge Instructions Instructions: Contusion in Adults (ED), Foot Sprain (ED) Additional Instructions: During today's visit there was an incidental finding of an abnormality noted on your chest x-ray. Please follow-up with your primary care provider for further evaluation of what is seen. No obvious fracture was noted on radiological imaging today she may continue to use conservative [id number] management of your pain and discomfort. If you develop any new or significant worsening of symptoms return to the emergency department for evaluation otherwise follow-up with your primary care provider if not improving in the next 1 to 2 weeks. Referrals: Kerry Ayala [place], [place] [Primary Care Provider] - 1 week (For evaluation of your incidental chest x-ray finding) Discharge Data Discharge Date/Time-TO BE ENTERED AT DEPARTURE: 05/17/22 10:14 Medical Decision Making Patient presenting to the emergency department for chief complaint of fall with primary source of mechanical nature. Patient denies any loss of consciousness, neck pain, focal neurological deficits. She states that she fell initially injuring her foot but during the fall also struck her right ribs on a stair. Patient denies any other injury or trauma. Physical exam shows tenderness to the lower aspects of the sternum with pain radiating into the lateral aspects of the mid ribs on the right side. Patient has clear lung sounds and normal cardiac exam. No spinal tenderness or abnormality is noted. Physical exam also shows mild lower tibial tenderness to palpation along with significant dorsal foot tenderness and ecchymosis with point tenderness to the base of the fifth metatarsal. Sensation cap refill and pulses are intact. We will plan on performing radiological imaging for evaluation of acute fracture versus soft tissue injury. Pending results will give patient Tylenol ibuprofen and lidocaine patch. At this time I doubt the patient has any pneumothorax, hemothorax, and no signs of open fracture. Review of radiological imaging and radiologist interpretation shows no acute fracture or worrisome findings noted. There was an incidental finding of a potential abnormality in the right upper lung that was not present on previous CT imaging. Discussed this finding with patient and patient stated that she would prefer to follow-up with her primary care provider to have any further repeat imaging or CT imaging performed. Referral was placed for patient to follow-up with primary care provider. Otherwise conservative management of multiple contusions was discussed along with return and follow-up precautions. After discussion of diagnosis and plan of care patient has no further needs, questions, or concerns and states clear understanding to return to the emergency department for any worsening symptoms. This documentation was generated using Me[employer] dictation system, please disregard any oddities of phrase or misspellings. Imaging Data Radiologic Study: Attestation: I personally reviewed and interpreted this imaging study as follows: Imaging: X-Ray Radiologist's impression: EXAM: XR TIB/FIB RT CLINICAL HISTORY: fall lower tib pain. TECHNIQUE: 2D digital imaging was performed. COMPARISON: No exams were available for comparison FINDINGS: Two views: No evidence of fracture nor radiopaque foreign body. No osseous lesions. Bone density normal. IMPRESSION: No significant osseous findings. Radiologic Study #2: Attestation: I personally reviewed and interpreted this imaging study as follows: Imaging: X-Ray Radiologist's impression: Exam(s) XR FOOT RT COMPLETE EXAM: XR FOOT RT COMPLETE CLINICAL HISTORY: fall lateral pain. TECHNIQUE: 2D digital imaging was performed. COMPARISON: No exams were available for comparison FINDINGS: 3 views Mild soft tissue swelling. No evidence of acute fracture or diastasis of the Lisfranc joint. Bone density normal. No osseous lesions. No radiopaque foreign body. IMPRESSION: No acute osseous findings Radiologic Study #3: Attestation: I personally reviewed and interpreted this imaging study as follows: Imaging: X-Ray Radiologist's impression: EXAM: XR STERNUM CLINICAL HISTORY: fall lower half pain. TECHNIQUE: 2D digital imaging was performed. COMPARISON: CR XR RIBS RT W PA LAT CHEST from 05/17/2022 FINDINGS: 3 views No sternal fracture identified IMPRESSION: No sternal fracture evident. Radiologic Study #4: Attestation: I personally reviewed and interpreted this imaging study as follows: Imaging: X-Ray Radiologist's impression: EXAM: XR RIBS RT W PA LAT CHEST CLINICAL HISTORY: Fall with right lateral rib pain TECHNIQUE: 2D digital imaging was performed. COMPARISON: CR CHEST 2 VIEWS PA,LAT from 05/30/2017 FINDINGS: RIBS 3 VIEWS-right There are no obvious acute rib fractures evident. No lytic rib lesions identified. Incidentally noted is a widened ipsilateral right AC joint although this is probably postsurgical. CXR- 2 VIEWS: There is no abnormal infiltrate in the right upper lobe which was not evident in 2018. This may be a significant incidental finding. No other pulmonary findings and no pneumothorax nor pleural effusion. Heart size is normal and there is no significant mediastinal widening. IMPRESSION: 1. No obvious rib fractures evident. Also no significant rib lesions. 2. Right upper lobe infiltrate-possible concerning pathology. This was not present in 2018. Consider CT scan. HPI General Mode of arrival: ambulatory. Date/Time Provider Initiated Documentation: 05/17/22 08:00. Limitations to Documentation: no limitations. Information obtained by: patient, family and RN notes reviewed. History of Present Illness 61 year old F presents to the emergency department with the chief complaint of Fall with right rib and lower leg injury, described as moderate, with intensity rated at 8. Quality is described as sharp, and is localized to the chest (Sternum and right lateral ribs) and right (Lower extremity). Patient reports no radiation. Patient started experiencing this day(s) (1) and it has been constant. Immobilization improves symptom(s), Movement worsens symptoms . Patient notes no other symptoms.. Patient did receive the following treatments prior to arrival, none Related Data Home Medications Medication Instructions Recorded Confirmed [id number] 250 1 ea PO PRN PRN 02/03/16 05/17/22 mg-250 mg-65 mg tablet (Excedrin Migraine) diphenhydramine 25 1 tab PO QHS PRN 11/17/18 05/17/22 mg-acetaminophen 500 mg tablet (Tylenol PM Extra Strength) acetaminophen 500 mg tablet 500 mg PO Q6H PRN pain #60 tabs 09/30/19 05/17/22 ibuprofen 600 mg tablet 600 mg PO TID PRN pain #60 tabs 11/24/20 05/17/22 molnupiravir 200 mg capsule (EUA) 800 mg PO Q12H 5 days #40 caps 12/28/21 05/17/22 escitalopram oxalate 20 mg tablet 20 mg PO HS #90 tab-caps 01/11/22 05/17/22 levothyroxine 75 mcg tablet 75 mcg PO DAILY #90 tab-caps 01/11/22 05/17/22 omeprazole 40 mg capsule,delayed 40 mg PO DAILY #90 caps 04/09/22 05/17/22 release Previous Rx's Medication Instructions Recorded acetaminophen 500 mg tablet 500 mg PO Q6H PRN pain #60 tabs 09/30/19 ibuprofen 600 mg tablet 600 mg PO TID PRN pain #60 tabs 11/24/20 molnupiravir 200 mg capsule (EUA) 800 mg PO Q12H 5 days #40 caps 12/28/21 escitalopram oxalate 20 mg tablet 20 mg PO HS #90 tab-caps 01/11/22 levothyroxine 75 mcg tablet 75 mcg PO DAILY #90 tab-caps 01/11/22 omeprazole 40 mg capsule,delayed 40 mg PO DAILY #90 caps 04/09/22 release Allergies Allergy/AdvReac Type Severity Reaction Status Date / Time ketorolac tromethamine Allergy Intermediate mouth Unverified 05/17/22 08:02 [From Toradol] becomes numb and Paranoia General Stated Complaint: Orthopedic TIANNA: 4 Review of Systems Narrative: 6 systems reviewed and unremarkable except what is marked below. Cardiovascular Cardiovascular: Denies syncope Respiratory Respiratory: Reports pain on inspiration Gastrointestinal Gastrointestinal: Denies abdominal pain Musculoskeletal Musculoskeletal: Reports as per HPI, Reports arthralgias and Reports joint swelling Integumentary/Breasts Skin/Breast: Reports unusual bruising Neurologic Neurologic: Denies syncope PFSH All Active Problems (Updated 05/17/22 @ 10:02 by Minor Christine NP) Contusion of multiple sites (Acute) Right foot sprain (Acute) Sacroiliac dysfunction (Acute) Carpal tunnel syndrome of right wrist (Acute) De Quervain's disease (radial styloid tenosynovitis) (Acute) Osteoporosis (Chronic) Fracture of right distal radius (Acute) Status post ORIF: 09/30/2019 Low back pain (Acute 06/23/12) Left foot pain (Acute 01/24/15) Intractable migraine with status migrainosus (Acute 06/23/12) Ganglion (Acute 01/24/15) Disc disorder of lumbar region (Acute) Annual physical exam (Acute) Skin lesion (Acute) Distal radius fracture (Acute 09/08/19) Subacromial bursitis (Chronic 02/08/16) 02/07/19-with large anterolateral spur SLAP (superior labrum from anterior to posterior) tear (Chronic 03/02/16) 02/08/16 right shoulder Right thyroid nodule (Chronic 04/24/16) vascular by US hyperfunction by scan Per pt. 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) Insomnia (Chronic 07/26/14) Incomplete rupture of right rotator cuff (Chronic 01/05/16) Hypothyroidism (Chronic 11/26/16) Gastroesophageal reflux disease with esophagitis (Chronic 10/01/17) Depression (Chronic 07/26/14) Bicipital tendinitis, right shoulder (Chronic 02/08/16) Arthritis of right acromioclavicular joint (Chronic 01/05/16) Medical History Chest discomfort Disc disease with myelopathy, lumbar Ganglion (01/24/15) Kidney stone Kidney stone (02/16/14) Left foot pain (01/24/15) Low back pain, non-specific 06/23/12 unspecified laterality with sciatica presence unspecified Mass of left foot Mass of left foot (01/31/15) Mgrn NOS w ntrc w st mgr 06/23/12 Migraine Sinusitis 07/26/14 Sinusitis (07/26/14) Tachycardia (02/16/14) Pt. states f/u with PCP regarding this, (Dr. Ayala) beleived that is was related to a side effect of a Nicotine patch she was on. Surgical History History of bilateral ligation of fallopian tubes History of bilateral tubal ligation History of extraction of renal calculus History of extraction of renal calculus History of orthopedic surgery 02/01/09 removal of mass-left foot (suspected ganglion cyst) History of orthopedic surgery (02/01/09) Kidney Stone Extraction Ligation of fallopian tube Shoulder Surgery 02/08/16-right shoulder; Dr. Navarrete Family History Mother , 89 Heart disease Father , 85 Epilepsy Brain cancer Heart disease Grandmother Diabetes Brother , 20 No problems noted. Brother , 66 Kidney cancer, primary, with metastasis from kidney to other site Sister , 74 Heart disease Sister , 60 Alcohol abuse Brother , 66 Cancer kidney cancer Social History Smoking/Tobacco Use Status: Former Tobacco Use tobacco type: cigarettes Quit Date: 04/01/16 Tobacco: How many years used: 30 Smoking risk assessment performed?: Yes Alcohol Intake: never Drug use: Never Substance use type: does not use Caregiver/Support person: No Household members: spouse Housing: house Communication Needs: None Do you need help understanding health information?: Rarely Pets and animals: No Sexually active: Yes Do you think of yourself as: straight/heterosexual Current gender identity: female What is your relationship status?: How often do you talk on the phone with friends or family?: three or more times per week How often do you get together with friends or relatives?: once per week How often do you attend congregational or restorationist services?: 1-3 times per year Do you belong to any clubs or organized social groups?: no Panel score (0-1 are the most socially isolated patients): 2 What type of physical activity do you participate in: decline to answer Duration: decline to answer Frequency: decline to answer Davida/Rastafari: Cheondoism Special davida needs: No Seatbelt use: always Drive intox or ride w/intox cdl company driver: No Do you feel safe at home: Yes Do you feel safe in your relationship?: Yes Exam Const General: cooperative, no acute distress and not ill appearing Orientation: alert, awake and oriented x3 Chest Chest: normal inspection of the chest, localized rib tenderness with anteroposterior compression right mid-axillary line involving the 5th rib, involving the 6th rib, involving the 7th rib and involving the 8th rib and tenderness sternum Resp Effort & Inspection: normal respiratory effort, able to speak in complete sentences and no respiratory distress Cardio Rate: regular rate Rhythm: regular rhythm Heart Sounds: S1 normal and S2 normal Back/Spine/Pelvis Cervical Spine: normal cervical lordosis and No cervical spinal tenderness Thoracic/Lumbar Spine: thoracic and lumbar spine normal to inspection, No thoracic spinal tenderness and No lumbar spinal tenderness Skin General skin exam: ecchymosis (Dorsal aspect of right foot) Neuro General: patient alert, patient awake, patient oriented x3, moves all extremities and no focal motor deficits Sensory Exam: no sensory deficits noted Extrem General: normal exam except as noted Right lower extremity: lower leg Details: tenderness Location: of the distal tibia, ankle Details: normal to inspection and normal ROM; no tenderness and no swelling and foot Details: normal capillary refill, tenderness Location: of the dorsal foot and of the lateral foot, toes with normal ROM, ecchymosis dorsal mid , vascular exam Details: dorsalis pedis pulse present and normal capillary refill and motor-sensory exam Details: two point discrimination normal and light-touch normal Course Vital Signs Vital signs: Vital Signs Temperature 36.3 C L 05/17/22 07:56 Pulse 89 05/17/22 07:56 Respiratory Rate 16 05/17/22 07:56 Blood Pressure 134/83 05/17/22 07:56 Pulse Oximetry 98 05/17/22 07:56 Temperature 36.3 C L 05/17/22 07:56 Temperature Source Tympanic 05/17/22 07:56 Pulse 89 05/17/22 07:56 Respiratory Rate 16 05/17/22 07:56 Respiratory Effort Normal 05/17/22 07:59 Blood Pressure 134/83 05/17/22 07:56 Blood Pressure Position Sitting 05/17/22 07:56 Pulse Oximetry 98 05/17/22 07:56 Oxygen Delivery Method Room Air 05/17/22 07:56 Oxygen Flow Rate 0 05/17/22 07:56 Pain Level 8 05/17/22 07:56
[2022-05-17] MEDS: Acetaminophen 500 MG TAB 1000 MG PO (08:26)
[2022-05-17] MEDS: Ibuprofen 600 MG TAB PO (08:27)
[2022-05-17] MEDS: Lidocaine 5% Patch 1 PATCH TP (08:27)
--- NOTE | 2022-05-17 10:03 | NUR.NOTE ---
Nursing Note: Referral faxed to PCP for incidental finding on xray of right upper lung in 1 week.
[2022-05-17 10:13] VITALS: BP 131/91; PULSE 88; TEMP 36.8; O2SAT 97
== END 2022-05-17 10:14 | disposition home or self-care (01) ==
PROVIDERS: Emergency Provider Nurse Practitioner Family; PCP Family Medicine
DX: S93.601A Unspecified sprain of right foot, initial encounter (principal); S90.31XA Contusion of right foot, initial encounter; W19.XXXA Unspecified fall, initial encounter; W22.8XXA Striking against or struck by other objects, initial encounter
CPT/HCPCS: 99284; 71046; 71100; 71120; 73590; 73630; 99282

== ENCOUNTER 2022-07-30 15:36 | Outpatient (CLI) | payer OTHER, SELFPAY ==
[2022-07-30 16:47] LABS: ESR 21 mm/hr (0-30)
[2022-07-30 21:32] LABS: C-Reactive Protein 0.38 mg/dL (0.0-0.3)
[2022-07-31 17:26] LABS: Rheumatoid Factor <8.6 IU/mL (<12.0)
[2022-08-01 07:51] LABS: Cyclic Citrullinated Peptide <2.5 U/mL (<5.0)
[2022-08-01 11:26] LABS: TB Interpretation Negative (Negative); TB1 Ag minus Nil 0.01 IU/ml; TB2 Ag minus Nil 0.05 IU/mL
[2022-08-01 15:08] LABS: ANA Interpretation Negative (Negative)
[2022-08-01 19:44] LABS: Myeloperoxidase Ab IgG <0.2 U; Proteinase 3 Ab (PR3) <0.2 U; Scl 70 Antibodies, IgG <0.2 U
[2022-08-02 15:04] LABS: Blastomyces Ag Result Not Detected; Blastomyces Ag Value Not Detected
[2022-08-02 16:59] LABS: Fungitell Qualitative Negative (Negative); Fungitell Quantitative Value <31 pg/mL (<60 pg/mL)
[2022-08-03 13:45] LABS: dsDNA Ab, IgG <12.3 IU/mL (<30.0)
[2022-08-03 15:13] LABS: SS-A Antibody 1.4 Units (<20.0)
[2022-08-03 15:41] LABS: Sm (Smith) Ab, IgG 2.3 Units (<20.0)
[2022-08-15 17:11] LABS: Anti-EJ Ab Negative (Negative); Anti-Jo-1 Ab <20 Units (<20); Anti-Ku Ab Negative (Negative); Anti-MDA-5 Ab (CADM-140) <20 Units (<20); Anti-Mi-2-Ab Negative (Negative); Anti-NXP-2 (P140) Ab <20 Units (<20); Anti-OJ Ab Negative (Negative); Anti-PL-12 Ab Negative (Negative); Anti-PL-7 Ab Negative (Negative); Anti-PM/Scl-100 Ab <20 Units (<20); Anti-SRP Ab Negative (Negative); Anti-SS-A 52kD Ab, IgG <20 Units (<20); Anti-TIF-1gamma Ab <20 Units (<20); Anti-U1 RNP Ab <20 Units (<20); Anti-U2 RNP Ab Negative (Negative); Anti-U3 RNP (Fibrillarin) Negative (Negative)
== END 2022-07-30 15:37 | disposition home or self-care (01) ==
LOC: LBO 15:36
PROVIDERS: PCP Family Medicine; Visit Provider Student in an Organized Health Care Education/Training Program
DX: R91.1 Solitary pulmonary nodule (principal)
CPT/HCPCS: 36415; 83516; 85652; 86200; 86235; 87305; 87449; 86038; 86140; 86225; 86431; 86480; 86606; 87385

== ENCOUNTER 2023-02-20 03:38 | Outpatient (CLI) | payer OTHER, SELFPAY ==
[2023-02-20 13:27] LABS: ALT 21 U/L (14-59); AST 16 U/L (15-37); Albumin 3.9 g/dL (3.4-5.0); Alkaline Phosphatase 68 U/L (46-116); Anion Gap 10.2 mmol/L (3-11); BUN 14 mg/dL (7-18); Bilirubin, Total 0.4 mg/dL (0.2-1.0); CO2 25.8 mmol/L (21.0-32.0); CREATININE 0.9 mg/dL (0.55-1.02); Chloride 101 mmol/L (98-107); Estimated GFR 71.39 (mL/min/1.73m2); Glucose 133 mg/dL (74-106); Potassium 3.6 mmol/L (3.5-5.1); Sodium 137 mmol/L (136-145); TSH (W/Ref FT4) 1.53 uIU/mL (0.36-3.74); Total Protein 7.7 g/dL (6.4-8.2)
== END 2023-02-20 03:39 | disposition home or self-care (01) ==
LOC: LBO 03:38
PROVIDERS: PCP Family Medicine; Visit Provider Family Medicine
DX: E03.9 Hypothyroidism, unspecified (principal); I10 Essential (primary) hypertension
CPT/HCPCS: 36415; 80053; 84443

== ENCOUNTER → 2023-07-01 01:31 | Outpatient (CLI) | payer OTHER, SELFPAY ==
--- NOTE | 2023-07-01 | DI.CT_ITS ---
Exam(s) CT CHEST W EXAM: CT CHEST W CLINICAL HISTORY: RT UPPER LOBE LUNG CANCER C34.11 S/P RUL LOBECTOMY RESTAGING TECHNIQUE: Imaging Protocol: Axial computed tomography images with coronal and sagittal reformatted images were created and reviewed CONTRAST MATERIAL: Intravenous: Omnipaque 350Contrast volume:70 mL. COMPARISON: CT CT CHEST WO from 05/29/[address] CHEST WO from 07/19/2022 FINDINGS: Tracheobronchial tree: Patent where visualized. Pulmonary parenchyma: The spiculated mass in the left lower lobe measures 1.5 x 1 cm. (Series 6, tali ge 323). This compares to 1.0 x 0.7 cm on the prior examination. There is a new reticular nodular i nfiltrate in the periphery of the left lower lobe. Status post right upper lobectomy. No other pulm onary nodules are seen. No other infiltrates are appreciated. Mediastinum and Griselda: No dominant adenopathy or fluid collection. The esophagus is unremarkable. Thyroid gland: Status post right lobectomy. The left lobe is unremarkable. Pleura: No effusion or pneumothorax. Heart: The heart is not dilated. No coronary artery calcifications are seen. No pericardial effusion. Aorta: Thoracic aorta non-dilated. Atherosclerotic calcification is present. Pulmonary arteries: Due to the timing of the bolus, the examination is not ideal for pulmonary artery evaluation. No large central pulmonary embolus is present. Upper abdomen: There is a simple cyst in the left kidney. No follow-up is recommended left renal co rtical atrophy and nephrolithiasis is seen. Lymph nodes: Within normal limits. Bones: Within normal limits for the patient's age. Soft tissues: Unremarkable. IMPRESSION: 1. Interval right upper lobectomy. 2. Interval increase in size of the spiculated nodule in the left lower lobe. It currently measures 1.5 x 1 cm compared with 1 x 0.7 cm. Metastasis should be considered. 3. New small reticular nodular infiltrate in the periphery of the left lower lobe. This is nonspecif ic. RADIATION DOSE DELIVERED: Total DLP DATA REPOSITORY: All CT scans at this facility are submitted to the National Radiology Data Registry (NRDR) Dose Index Registry (DIR) with the [employer] (ACR). RADIATION OPTIMIZATION: All CT scans at this facility use at least one of these dose optimization te chniques: automated exposure control; mA and/or kV adjustment per patient size (includes targeted exa ms where dose is matched to clinical indication); or iterative reconstruction.
[2023-07-01 08:41] LABS: Abs Immature Grans 0.05 10^3/uL (0.0-0.06); Absolute Basophil Count 0.05 10^3/uL (0.0-0.2); Absolute Eosinophil Count 0.14 10^3/uL (0.0-0.7); Absolute Lymphocyte Count 2.18 10^3/uL (1.2-3.4); Absolute Monocyte Count 0.61 10^3/uL (0.1-0.8); Absolute Neutrophil Count 5.25 10^3/uL (1.2-6.7); Basophils % 0.6; Eosinophils % 1.7; HCT 42.7 % (36.0-46.0); HGB 13.9 g/dL (11.2-15.7); Immature Grans % 0.6; Lymphocytes % 26.3; MCH 28.3 pg (27.0-33.0); MCHC 32.6 % (32.0-36.0); MCV 87 fL (80-95); MPV 9.6 fL (8.0-11.0); Monocytes % 7.4; Neutrophils % 63.4; Platelet Count 253 10^3/uL (130-400); RBC 4.91 10^6/uL (3.93-5.22); RDW-SD 41.4 fL; WBC 8.28 10^3/uL (4.4-10.8)
[2023-07-01 08:54] LABS: ALT 31 U/L (14-59); AST 23 U/L (15-37); Albumin 3.9 g/dL (3.4-5.0); Alkaline Phosphatase 79 U/L (46-116); BUN 12 mg/dL (7-18); Bilirubin, Total 0.5 mg/dL (0.2-1.0); CREATININE 0.9 mg/dL (0.55-1.02); Calcium 9.5 mg/dL (8.5-10.1); Chloride 102 mmol/L (98-107); Estimated GFR 71.39 (mL/min/1.73m2); Glucose 101 mg/dL (74-106); Potassium 4.2 mmol/L (3.5-5.1); Sodium 140 mmol/L (136-145); Total Protein 7.8 g/dL (6.4-8.2)
[2023-07-01] MEDS: Normal Saline - Diluent 50 ML VIAL IJ (09:24)
[2023-07-01] MEDS: Omnipaque 350 MG/ML 100 ML BTL 70 ML IJ (09:25)
[2023-07-01] MEDS: Normal Saline Flush 10 ML SYR IVP (09:34)
== END ==
PROVIDERS: PCP Family Medicine; Visit Provider Internal Medicine Medical Oncology
DX: C34.11 Malignant neoplasm of upper lobe, right bronchus or lung (principal); Z90.2 Acquired absence of lung [part of]; R91.8 Other nonspecific abnormal finding of lung field
CPT/HCPCS: 80053; 71260; 85025; J3490

== ENCOUNTER 2023-07-29 17:47 | Outpatient (CLI) | payer OTHER, SELFPAY ==
[2023-07-29 09:05] LABS: Abs Immature Grans 0.03 10^3/uL (0.0-0.06); Absolute Basophil Count 0.04 10^3/uL (0.0-0.2); Absolute Eosinophil Count 0.11 10^3/uL (0.0-0.7); Absolute Lymphocyte Count 2.22 10^3/uL (1.2-3.4); Absolute Monocyte Count 0.53 10^3/uL (0.1-0.8); Absolute Neutrophil Count 4.75 10^3/uL (1.2-6.7); Basophils % 0.5; Eosinophils % 1.4; HGB 13.5 g/dL (11.2-15.7); Immature Grans % 0.4; Lymphocytes % 28.9; MCH 28.5 pg (27.0-33.0); MCHC 32.9 % (32.0-36.0); MCV 87 fL (80-95); MPV 9.5 fL (8.0-11.0); Monocytes % 6.9; Neutrophils % 61.9; Platelet Count 250 10^3/uL (130-400); RBC 4.73 10^6/uL (3.93-5.22); RDW 12.8 % (11.7-14.6); RDW-SD 40.5 fL; WBC 7.68 10^3/uL (4.4-10.8)
[2023-07-29 09:21] LABS: ALT 23 U/L (14-59); AST 21 U/L (15-37); Albumin 3.9 g/dL (3.4-5.0); Alkaline Phosphatase 72 U/L (46-116); Anion Gap 9.8 mmol/L (3-11); BUN 11 mg/dL (7-18); Bilirubin, Total 0.6 mg/dL (0.2-1.0); CO2 25.2 mmol/L (21.0-32.0); CREATININE 0.9 mg/dL (0.55-1.02); Calcium 8.5 mg/dL (8.5-10.1); Chloride 101 mmol/L (98-107); Estimated GFR 71.39 (mL/min/1.73m2); Glucose 110 mg/dL (74-106); Potassium 3.9 mmol/L (3.5-5.1); Sodium 136 mmol/L (136-145); Total Protein 7.5 g/dL (6.4-8.2)
== END 2023-07-29 17:48 | disposition home or self-care (01) ==
LOC: LBO 17:49
PROVIDERS: PCP Family Medicine; Visit Provider Internal Medicine Medical Oncology
DX: C34.11 Malignant neoplasm of upper lobe, right bronchus or lung (principal)
CPT/HCPCS: 36415; 80053; 85025

== ENCOUNTER → 2023-09-12 00:09 | Outpatient (CLI) | payer MEDICARE, SELFPAY ==
--- NOTE | 2023-09-12 09:45 | DI.CT_ITS ---
Exam(s) CT CHEST W EXAM: CT CHEST W CLINICAL HISTORY: intermittent severe facial flushing lung [id number] R23.2 TECHNIQUE: Imaging Protocol: Axial computed tomography images with coronal and sagittal reformatted images were created and reviewed CONTRAST MATERIAL: Intravenous: Omnipaque 350contrast volume:100 mL. COMPARISON: CT CT CHEST W from 07/01/[address] NECK W from 09/12/2023 FINDINGS: The examination is limited due to patient motion artifact. Tracheobronchial tree: Patent where visualized. Pulmonary parenchyma: There is again seen a 1.5 x 1.1 cm spiculated mass in the left lower lobe (seri es 15, image 325). No focal consolidating infiltrates are seen. The previously seen peripheral infi ltrate in the left lower lobe has resolved. Status post right upper lobectomy. Mediastinum and Griselda: No dominant adenopathy or fluid collection. The esophagus is unremarkable. Thyroid gland: The right lobe of the thyroid gland is small or absent. Pleura: No effusion or pneumothorax. Heart: The heart is not dilated. Coronary artery calcification is present. No pericardial effusion. Aorta: Thoracic aorta non-dilated. Atherosclerotic calcification is present. There is no evidence of a dissection. Pulmonary arteries: Due to the timing of the bolus peripheral pulmonary artery evaluation is suboptim al. No large central pulmonary embolus is present. Upper abdomen: Left renal cortical atrophy, cysts and stones. No follow-up is recommended. Lymph nodes: Within normal limits. Bones: Within normal limits for the patient's age. There is a subacute healing fracture of the later al aspect of the right 5th rib. Soft tissues: Unremarkable. IMPRESSION: 1. Stable 1.5 x 1.1 cm spiculated nodule in the left lower lobe. 2. Resolution of the left lower lobe infiltrate. No acute pulmonary process. 3. Subacute healing fracture of the right 5th rib. RADIATION DOSE DELIVERED: Total DLP DATA REPOSITORY: All CT scans at this facility are submitted to the National Radiology Data Registry (NRDR) Dose Index Registry (DIR) with the [employer] (ACR). RADIATION OPTIMIZATION: All CT scans at this facility use at least one of these dose optimization te chniques: automated exposure control; mA and/or kV adjustment per patient size (includes targeted exa ms where dose is matched to clinical indication); or iterative reconstruction.
--- NOTE | 2023-09-12 09:48 | DI.CT_ITS ---
Exam(s) CT NECK W EXAM: CT NECK W CLINICAL HISTORY: intermittent severe facial flushing lung [id number] R23.2. TECHNIQUE: Imaging Protocol: Axial computed tomography images with coronal and sagittal reformatted images were created and reviewed. CONTRAST MATERIAL: Intravenous: Omnipaque 350 Contrast volume:100mL COMPARISON: CT CT HEAD WO/W from 09/12/2023 FINDINGS: The examination is limited due to patient motion artifact. Orbits and orbital soft tissues: Within normal limits. Visualized paranasal sinuses: Within normal limits. Nasopharynx: Within normal limits. Oropharynx: Within normal limits. Hypopharynx: Within normal limits. Larynx: Within normal limits. Retropharyngeal space: Within normal limits. Parotids/submandibular: Within normal limits. Thyroid gland: The right lobe of the thyroid gland is absent or very small. The left lobe is unrema rkable. Lymphadenopathy: There is scattered lymph nodes seen along the level one to level three all measurin g less than 8 mm in short axis diameter which are physiologic in nature. Trachea: Within normal limits. Lung apices: No focal infiltrates. Bones: Within normal limits for the patient's age. Carotids/Jugular: Within normal limits. Minimal atherosclerosis at the origin of the left internal c arotid artery. Soft tissues: Within normal limits. IMPRESSION: No evidence of a cervical mass or adenopathy. RADIATION DOSE DELIVERED: Total DLP Total DLP DATA REPOSITORY: All CT scans at this facility are submitted to the National Radiology Data Registry (NRDR) Dose Index Registry (DIR) with the [employer] (ACR). RADIATION OPTIMIZATION: All CT scans at this facility use at least one of these dose optimization te chniques: automated exposure control; mA and/or kV adjustment per patient size (includes targeted exa ms where dose is matched to clinical indication); or iterative reconstruction.
--- NOTE | 2023-09-12 09:48 | DI.CT_ITS ---
Exam(s) CT HEAD WO/W EXAM: CT HEAD WO/W CLINICAL HISTORY: intermittent severe facial flushing lung cancer C34.90 R23.2. TECHNIQUE: Imaging Protocol: Axial computed tomography images with coronal and sagittal reformatted images were created and reviewed. CONTRAST MATERIAL: Intravenous: Omnipaque 350 contrast volume:100 mL COMPARISON: No exams were available for comparison FINDINGS: Ventricles and Extra axial spaces: Normal in size and morphology for the patient's age. Hemorrhage: None. Cerebral parenchyma: No evidence of an acute territorial infarct or intracranial mass. Enhancement: No suspicious enhancement. [place] of [place]: Unremarkable. Midline shift: None. Brainstem/Cerebellum: Normal. Calvarium: Normal. Visualized Paranasal sinuses/Mastoids: Clear. IMPRESSION: No evidence of an intracranial mass or enhancing lesion. No acute intracranial process. RADIATION DOSE DELIVERED: Total DLP Total DLP DATA REPOSITORY: All CT scans at this facility are submitted to the National Radiology Data Registry (NRDR) Dose Index Registry (DIR) with the [employer] (ACR). RADIATION OPTIMIZATION: All CT scans at this facility use at least one of these dose optimization te chniques: automated exposure control; mA and/or kV adjustment per patient size (includes targeted exa ms where dose is matched to clinical indication); or iterative reconstruction.
[2023-09-12] MEDS: Omnipaque 350 MG/ML 500 ML BTL-Imaging package IJ (10:24)
[2023-09-12] MEDS: Normal Saline - Diluent 50 ML VIAL IJ (10:24)
[2023-09-12 12:59] LABS: CREATININE 0.9 mg/dL (0.55-1.02)
== END ==
PROVIDERS: PCP Family Medicine; Visit Provider Family Medicine
DX: C34.90 Malignant neoplasm of unspecified part of unspecified bronchus or lung (principal); R91.8 Other nonspecific abnormal finding of lung field; R23.2 Flushing
CPT/HCPCS: 70491; 70470; 71260; 82565

== ENCOUNTER 2024-02-11 01:21 | Outpatient (CLI) | payer MEDICARE, SELFPAY ==
--- NOTE | 2024-02-11 | DI.CT_ITS ---
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 TECHNIQUE: Imaging protocol: Axial computed tomography images were obtained and coronal and sagittal reformatted images were created and reviewed. Computer aided detection (CAD) was utilized. CONTRAST MATERIAL: Noncontrast COMPARISON: CT CT CHEST W from 07/01/[address] CHEST W from 09/12/2023 FINDINGS: Pulmonary parenchyma: Previously noted left lower lobe mass is no longer visible however there is lef t lower lobe consolidation which would obscure the mass. Mild scarring lingula. Right upper lobecto my. Tracheobronchial tree: No mucous plugging. No bronchiectasis . Pleura: No effusion or pneumothorax. Heart: The heart is mildly dilated. The coronary arteries show mild calcifications. Aorta: Thoracic aorta non-dilated. Mild atherosclerotic changes. Lymph nodes: No enlarged lymph nodes. Bones: Degenerative changes are seen. No evidence of compression fracture. No lytic or blastic l esion. Upper abdomen: Unremarkable. Soft tissues: Unremarkable. IMPRESSION: Area of consolidation left lung base, presumably secondary to radiation therapy. This obscures visua lization of any residual mass RADIATION DOSE DELIVERED: 220.74mGy.cm Total DLP 220.74mGy.cm Total DLP DATA REPOSITORY: All CT scans at this facility are submitted to the National Radiology Data Registry (NRDR) Dose Index Registry (DIR) with the [employer] ([employer]). RADIATION OPTIMIZATION: All CT scans at this facility use at least one of these dose optimization te chniques: automated exposure control; mA and/or kV adjustment per patient size (includes targeted exa ms where dose is matched to clinical indication); or iterative reconstruction.
== END 2024-02-11 01:41 ==
LOC: DI 01:22
PROVIDERS: PCP Family Medicine; Visit Provider Radiology Radiation Oncology
DX: C34.32 Malignant neoplasm of lower lobe, left bronchus or lung (principal)
CPT/HCPCS: 71250

== ENCOUNTER 2024-03-02 11:08 | Outpatient (CLI) | payer MEDICARE, SELFPAY ==
[2024-03-02 12:23] LABS: HCT 42.1 % (36.0-46.0); HGB 13.8 g/dL (11.2-15.7); MCH 28.6 pg (27.0-33.0); MCHC 32.8 % (32.0-36.0); MCV 87 fL (80-95); MPV 10.2 fL (8.0-11.0); Platelet Count 289 10^3/uL (130-400); RBC 4.82 10^6/uL (3.93-5.22); RDW 12.6 % (11.7-14.6); RDW-SD 40.3 fL; WBC 7.63 10^3/uL (4.4-10.8)
[2024-03-02 16:05] LABS: ALT 24 U/L (14-59); AST 25 U/L (15-37); Alkaline Phosphatase 78 U/L (46-116); Anion Gap 12.9 mmol/L (3-11); BUN 13 mg/dL (7-18); Bilirubin, Total 0.47 mg/dL (0.2-1.0); CO2 24.1 mmol/L (21.0-32.0); Calcium 9.4 mg/dL (8.5-10.1); Chloride 102 mmol/L (98-107); Estimated GFR 62.52 (mL/min/1.73m2); Glucose 102 mg/dL (74-106); Potassium 3.9 mmol/L (3.5-5.1); Sodium 139 mmol/L (136-145); TSH (W/Ref FT4) 0.51 uIU/mL (0.36-3.74); Total Protein 7.7 g/dL (6.4-8.2); Vitamin B12 399 pg/mL (193-986)
== END 2024-03-02 11:09 | disposition home or self-care (01) ==
LOC: LOS 11:08
PROVIDERS: PCP Family Medicine; Referring Provider Family Medicine; Visit Provider Family Medicine
DX: I48.91 Unspecified atrial fibrillation (principal); E03.9 Hypothyroidism, unspecified; E53.8 Deficiency of other specified B group vitamins; E04.1 Nontoxic single thyroid nodule; J45.909 Unspecified asthma, uncomplicated; I10 Essential (primary) hypertension
CPT/HCPCS: 36415; 80053; 85027; 82607; 84443

== ENCOUNTER 2024-03-12 09:21 | Outpatient (RCR) | payer MEDICARE, SELFPAY ==
--- NOTE | 2024-03-19 08:53 | W.HOLTRPT ---
Date of service: 03/19/24 Time of Service: 08:53 Holter Monitor Report Referring Provider:: Kerry Ayala Indications:: Unspecified atrial fibrillation Holter Monitor Note: This is a 48-hour Holter monitor. Predominant rhythm was sinus with an average heart rate of 71. Minimum was 54, maximum 104. There are very rare isolated ventricular ectopic beats. There were rare atrial premature beats. Several self-limited atrial runs occurred. These were generally less than 10 beats in duration and were asymptomatic. There was no atrial fibrillation, no high-grade AV block, no pauses greater than 3 seconds. Reported symptoms correlated to sinus rhythm in the 70s
== END 2024-03-31 23:59 | disposition home or self-care (01) ==
LOC: CARDOPNVT 09:21
PROVIDERS: PCP Family Medicine; Visit Provider Internal Medicine Cardiovascular Disease
DX: I48.91 Unspecified atrial fibrillation (principal); Z51.89 Encounter for other specified aftercare
CPT/HCPCS: 93225; 93226

== ENCOUNTER 2024-05-25 00:48 | Outpatient (CLI) | payer MEDICARE, SELFPAY ==
--- NOTE | 2024-05-25 | DI.CT_ITS ---
Exam(s) CT CHEST WO EXAM: CT CHEST WO CLINICAL HISTORY: C34.32, C34.11 Primary CA of LT LLL, Primary CA of RT ULL, Please Access. TECHNIQUE: Imaging protocol: Axial computed tomography images were obtained and coronal and sagittal reformatted images were created and reviewed. Lung Computer Aided Detection (CAD) was utilized. COMPARISON: CT CT CHEST WO from 02/11/2024 FINDINGS: Tracheobronchial tree: Patent where visualized. No bronchiectasis is present. Pulmonary parenchyma: There has been a prior right upper lobectomy. The infiltrate in the left lower lobe has improved compared to the prior examination. There is still of an opacity in the left lower lobe with associated bronchiectasis. There is unchanged scarring seen in the left lingula. No new infiltrates are seen. No new pulmonary nodules are present. Mediastinum and Griselda: No dominant adenopathy or fluid collection. The esophagus is unremarkable. Thyroid gland: The patient appears to have had a prior right thyroid lobectomy. The left lobe is unr emarkable. Pleura: No effusion or pneumothorax. Heart: The heart is not dilated. Coronary artery calcifications are present. No pericardial effusion . Aorta: Thoracic aorta non-dilated. Atherosclerotic calcification is present. Upper abdomen: No acute abnormality. Lymph nodes: Within normal limits. Soft tissues: Unremarkable. Bones:Within normal limits for the patient's age. IMPRESSION: 1. Interval improvement in the opacity in the left lower lobe. There is a persistent smaller opacity with bronchiectasis associated. 2. No new pulmonary infiltrates or nodules. 3. No acute pulmonary process. RADIATION DOSE DELIVERED: 196.7mGy.cm Total DLP 196.7mGy.cm Total DLP DATA REPOSITORY: All CT scans at this facility are submitted to the National Radiology Data Registry (NRDR) Dose Index Registry (DIR) with the [employer] ([employer]). RADIATION OPTIMIZATION: All CT scans at this facility use at least one of these dose optimization te chniques: automated exposure control; mA and/or kV adjustment per patient size (includes targeted exa ms where dose is matched to clinical indication); or iterative reconstruction.
== END 2024-05-25 01:08 ==
LOC: DI 00:48
PROVIDERS: PCP Family Medicine; Visit Provider Colon & Rectal Surgery
DX: C34.32 Malignant neoplasm of lower lobe, left bronchus or lung (principal); C34.11 Malignant neoplasm of upper lobe, right bronchus or lung
CPT/HCPCS: 71250

== ENCOUNTER 2024-07-16 07:10 | Outpatient (CLI) | payer MEDICARE, SELFPAY ==
[2024-07-16 07:48] LABS: HCT 42.9 % (36.0-46.0); HGB 13.7 g/dL (11.2-15.7); MCH 28.1 pg (27.0-33.0); MCHC 31.9 % (32.0-36.0); MCV 88 fL (80-95); MPV 9.9 fL (8.0-11.0); Platelet Count 252 10^3/uL (130-400); RBC 4.87 10^6/uL (3.93-5.22); RDW 13.2 % (11.7-14.6); RDW-SD 42.4 fL; WBC 7.21 10^3/uL (4.4-10.8)
[2024-07-16 08:22] LABS: ALT 26 U/L (14-59); AST 21 U/L (15-37); Albumin 3.7 g/dL (3.4-5.0); Alkaline Phosphatase 79 U/L (46-116); Anion Gap 10.2 mmol/L (3-11); BUN 15 mg/dL (7-18); Bilirubin, Total 0.5 mg/dL (0.2-1.0); CO2 27.8 mmol/L (21.0-32.0); CREATININE 1.1 mg/dL (0.55-1.02); Calcium 8.9 mg/dL (8.5-10.1); Chloride 104 mmol/L (98-107); Estimated GFR 55.76 (mL/min/1.73m2); Ferritin 113 ng/mL (8-252); Glucose 132 mg/dL (74-106); Potassium 3.9 mmol/L (3.5-5.1); Sodium 142 mmol/L (136-145); TSH (W/Ref FT4) 1.04 uIU/mL (0.36-3.74); Total Protein 7.4 g/dL (6.4-8.2)
[2024-07-16 08:32] LABS: Iron 75 ug/dL (50-170)
== END 2024-07-16 07:11 | disposition home or self-care (01) ==
PROVIDERS: PCP Family Medicine; Visit Provider Family Medicine
DX: E03.9 Hypothyroidism, unspecified (principal); M62.838 Other muscle spasm; R25.1 Tremor, unspecified; I10 Essential (primary) hypertension
CPT/HCPCS: 36415; 80053; 85027; 82728; 83540; 84443

== ENCOUNTER 2024-11-17 15:03 | Outpatient (CLI) | payer MEDICARE, SELFPAY ==
--- NOTE | 2024-11-17 | DI.CT_ITS ---
Exam(s) CT CHEST WO EXAM: CT CHEST WO CLINICAL HISTORY: CA RUL LUNG, C34.11,CA LLL LUNG C34.32,S/P RUL LOBECTOMY,COMPLETED SBRT,. TECHNIQUE: Imaging protocol: Axial computed tomography images were obtained and coronal and sagittal reformatted images were created and reviewed. Computer aided detection (CAD) was utilized. CONTRAST MATERIAL: Noncontrast COMPARISON: CT CT CHEST W from 07/01/[address] CHEST WO from 02/11/[address] CHEST WO from 05/25/2024 FINDINGS: Pulmonary parenchyma: Prior right upper lobectomy. Lingular scarring. Stable small opacity in lingula which also may represent scarring. Stable area of somewhat linear opacity with associated bronchiectasis in the left lower lobe. No new suspicious nodules. Interstitial changes: None. Emphysema: None. Tracheobronchial tree: No mucous plugging. No bronchiectasis . Pleura: No effusion or pneumothorax. Heart: The heart is not dilated. The coronary arteries show mild calcifications. Aorta: Thoracic aorta non-dilated. Mild atherosclerotic changes. Lymph nodes: No enlarged lymph nodes. Bones: Degenerative changes are seen. No evidence of compression fracture. Upper abdomen: Left renal scarring and calcifications. Soft tissues: Unremarkable. IMPRESSION: Stable appearance of left lower lobe opacity which has the appearance of atelectasis with associated bronchiectasis. Stable areas of scarring in the lingula. No new abnormalities. RADIATION DOSE DELIVERED: Total DLP Total DLP DATA REPOSITORY: All CT scans at this facility are submitted to the National Radiology Data Registry (NRDR) Dose Index Registry (DIR) with the [employer] ([employer]). RADIATION OPTIMIZATION: All CT scans at this facility use at least one of these dose optimization techniques: automated exposure control; mA and/or kV adjustment per patient size (includes targeted exams where dose is matched to clinical indication); or iterative reconstruction.
== END 2024-11-17 15:23 ==
LOC: DI 15:03
PROVIDERS: PCP Family Medicine; Visit Provider Colon & Rectal Surgery
DX: C34.11 Malignant neoplasm of upper lobe, right bronchus or lung (principal); C34.32 Malignant neoplasm of lower lobe, left bronchus or lung
CPT/HCPCS: 71250

== ENCOUNTER 2025-03-11 01:41 | Outpatient (CLI) | payer MEDICARE, SELFPAY ==
[2025-03-11 08:05] LABS: ALT 16 U/L (10-49); AST 23 U/L (<34); Albumin 4.4 g/dL (3.2-5.0); Alkaline Phosphatase 62 U/L (46-116); Anion Gap 8.5 mmol/L (3-11); BUN 17 mg/dL (9-23); Bilirubin, Total 0.4 mg/dL (0.2-1.2); CO2 29.5 mmol/L (20.0-31.0); Calcium 9.4 mg/dL (8.3-10.6); Chloride 106 mmol/L (98-107); Cholesterol 311 mg/dL (<200); Glucose 105 mg/dL (74-106); HDL Cholesterol 46 mg/dL (>40); Potassium 4.3 mmol/L (3.5-5.1); Sodium 144 mmol/L (136-145); Total Protein 7.3 g/dL (5.7-8.2)
[2025-03-11 08:08] LABS: TSH (W/Ref FT4) 1.50 uIU/mL (0.55-4.78)
[2025-03-11 09:23] LABS: Vitamin B12 443 pg/mL (211-911)
[2025-03-11 21:02] LABS: Hepatitis C Ab w Rflx HCV PCR Negative (Negative)
== END 2025-03-11 01:42 | disposition home or self-care (01) ==
LOC: LBO 01:42
PROVIDERS: PCP Family Medicine; Visit Provider Family Medicine
DX: E53.8 Deficiency of other specified B group vitamins (principal); E03.9 Hypothyroidism, unspecified; I10 Essential (primary) hypertension; Z11.59 Encounter for screening for other viral diseases
CPT/HCPCS: 36415; 80053; 80061; 86803; 82607; 84443